=== PATIENT | male | born 1980 | race Caucasian/White ===

== ENCOUNTER 2018-07-08 08:53 | Emergency (ER) | payer OTHER ==
[2018-07-08 09:00] VITALS: BP 126/81; PULSE 78; TEMP 98; BMI 29.0
[2018-07-08] MEDS ORDERED: NAPROXEN 500 MG TABLET (FP) ONE (10:24)
--- NOTE | 2018-07-08 10:32 | PDOC ---
History of Present Illness - General Chief Complaint: Back Pain Stated Complaint: BACK PAIN / LOWER LF SIDE Time Seen by Provider: 07/08/18 10:25 History Source: Patient Exam Limitations: No Limitations - History of Present Illness Initial Comments: 07/08/18 10:27 States was at work 2 days ago, and lifted heavy pallet of lower and felt an acute onset of pain in his lower back. Denies numbness or tingling to feet, no problems with bowel or bladder. Has used some Tylenol with minimal resolved. States is difficult to twist and turn and unable to perform his job duties with same. Occurred: reports: other (3 days ago Friday morning) Severity: reports: moderate Pain Location: reports: back (low to mid back/waistline) Associated Symptoms (Fall): muscle spasms, trouble walking Past History - Travel Traveled outside of the country in the last 30 days: No Close contact w/someone who was outside of country & ill: No - Past Medical History Allergies/Adverse Reactions: Allergies Allergy/AdvReac Type Severity Reaction Status Date / Time No Known Allergies Allergy Verified 07/08/18 09:00 Home Medications: Ambulatory Orders Cyclobenzaprine HCl 10 mg PO Q8H PRN #14 tablet 07/08/18 Naproxen [Naprosyn -] 500 mg PO BID #30 tablet 07/08/18 COPD: No - Suicide/Smoking/Psychosocial Hx Smoking History: Never smoked Information on smoking cessation initiated: No Hx Alcohol Use: No Drug/Substance Use Hx: No Review of Systems - Review of Systems Able to Perform ROS?: Yes Is the patient limited Chinese proficient: Yes Constitutional: Yes: Symptoms Reported, See HPI. No: Fever, Malaise HEENTM: Yes: See HPI. No: Symptoms Reported Respiratory: Yes: See HPI Musculoskeletal: Yes: Symptoms Reported, See HPI, Back Pain, Muscle Pain, Muscle Weakness Neurological: Yes: See HPI. No: Symptoms reported All Other Systems: Reviewed and Negative *Physical Exam - Vital Signs Last Vital Signs Temp Pulse Resp BP Pulse Ox 98 F 78 17 126/81 97 07/08/18 08:59 07/08/18 08:59 07/08/18 08:59 07/08/18 08:59 07/08/18 08:59 - Physical Exam General Appearance: Yes: Appropriately Dressed, Apparent Distress, Moderate Distress HEENT: positive: [place], Normal ENT Inspection, TMs Normal, Pharynx Normal Neck: positive: Supple. negative: Tender Respiratory/Chest: positive: Lungs Clear Musculoskeletal: positive: Normal Inspection, Muscle Spasm (palpable spasm noted to paravertebral spinous muscles bilaterally, has no true spine tenderness crepitus or step-offs. Cervical spine intact) Extremity: positive: Normal Capillary Refill, Normal Inspection. negative: Normal Range of Motion Integumentary: positive: Normal Color, Dry. negative: Rash Neurologic: positive: utilization manager II-XII NML intact, Fully Oriented, Alert, Normal Mood/ Affect, Normal Response *DC/Admit/Observation/Transfer Diagnosis at time of Disposition: Low back strain Qualifiers: Encounter type: initial encounter Qualified Code(s): S39.012A - Strain of muscle, fascia and tendon of lower back, initial encounter - Discharge Dispostion Disposition: HOME Condition at time of disposition: Stable Decision to Admit order: No - Prescriptions Prescriptions: Cyclobenzaprine HCl 10 mg PO Q8H PRN #14 tablet PRN Reason: spasm Naproxen [Naprosyn -] 500 mg PO BID #30 tablet - Referrals Referrals: Xavier Anderson MD [Primary Care Provider] - - Patient Instructions Printed Discharge Instructions: DI for Low Back Pain Additional Instructions: Rest, no heavy lifting or exercise until pain is resolved Hot soaks to neck and low back as often as possible/hot showers or Jacuzzis No massage or therapy until spasm is gone Continue Naprosyn 500 mg tablet, 1 tablet every 8 hours for the next 3 days then as needed for pain and swelling Cyclobenzaprine 1-10mg every 8 hours as needed for spasm If not significant improvement within 24 hours with medication and rest regime, followup with private physician for change in medications and /or therapy. - Post Discharge Activity Forms/Work/School Notes: Back to Work
== END 2018-07-08 10:33 | disposition home or self-care (01) ==
LOC: JERFT 08:53
DX: S39.012A Strain of muscle, fascia and tendon of lower back, initial encounter (principal); M62.830 Muscle spasm of back; X50.0XXA Overexertion from strenuous movement or load, initial encounter; Y93.89 Activity, other specified; Y92.63 Factory as the place of occurrence of the external cause; Y99.0 Civilian activity done for income or pay
CPT/HCPCS: 99281-25

== ENCOUNTER 2022-08-13 16:13 | Emergency (ER) | payer OTHER ==
[2022-08-13 16:43] VITALS: BP 120/75; PULSE 96; RESP 18; TEMP 100.2; BMI 26.2
[2022-08-13] MEDS ORDERED: DEXAMETHASONE SOD PHOSPHATE 10 MG/1 ML VIAL ONE (19:25)
[2022-08-13] MEDS ORDERED: CEFTRIAXONE 500 MG in DEXTROSE 5%-WATER - 50 ML IVPB ONE (19:28)
[2022-08-13] MEDS ORDERED: ONDANSETRON 4 MG/2 ML VIAL ONE (19:37)
[2022-08-13] MEDS ORDERED: ONDANSETRON 4 MG/2 ML VIAL IVPB ONE (19:38)
[2022-08-13] MEDS ORDERED: DEXAMETHASONE SOD PHOSPHATE 10 MG/1 ML VIAL IVPUSH ONE (19:50)
[2022-08-13] MEDS ORDERED: ACETAMINOPHEN 500 MG TABLET (FP) PO ONE (21:02)
[2022-08-13] MEDS ORDERED: ACETAMINOPHEN 500 MG TABLET (FP) ONE (21:03)
[2022-08-13 21:08] LABS: POTASSIUM 4.6 mmol/L (3.5-5.1)
[2022-08-13 21:11] LABS: CALCIUM 9.7 mg/dL (8.5-10.1)
[2022-08-13 21:12] LABS: ALBUMIN 4.1 g/dl (3.4-5.0); BASO % 0.2 % (0-2.0); BLOOD UREA NITROGEN 11.7 mg/dL (7-18); EOS % 0.1 % (0-4.5); HEMOGLOBIN 16.5 GM/dL (11.7-16.9); LYMPH % 5.2 % (8-40); MCH 32.1 pg (25.7-33.7); MEAN CELL VOLUME 91.6 fl (80-96); MEAN PLT VOLUME 11.2 fl (7.5-11.1); MONO % 6.1 % (3.8-10.2); NEUT % 88.4 % (42.8-82.8); PLATELET COUNT 172 10^3/uL (134-434); RBC 5.13 M/mm3 (4.00-5.60); RDW 13.4 % (11.9-15.9); WHITE BLOOD COUNT 14.5 K/mm3 (4.0-10.0)
[2022-08-13 21:16] LABS: TOT PROT 8.2 g/dl (6.4-8.2)
[2022-08-15] MEDS ORDERED: SODIUM CHLORIDE 0.9% 1000 ML INFUS.BAG IV ONE (19:27)
== END 2022-08-13 22:14 | disposition home or self-care (01) ==
LOC: JER 16:13 → JERFT 16:13
PROC: 3E03329 Introduction of Other Anti-infective into Peripheral Vein, Percutaneous Approach (ICD-10-PCS; principal; 2022-08-13)
PROC: 3E033GC Introduction of Other Therapeutic Substance into Peripheral Vein, Percutaneous Approach (ICD-10-PCS; 2022-08-13)
PROC: 3E033GC Introduction of Other Therapeutic Substance into Peripheral Vein, Percutaneous Approach (ICD-10-PCS; 2022-08-13)
DX: J03.90 Acute tonsillitis, unspecified (principal); E86.0 Dehydration; R07.0 Pain in throat; R50.9 Fever, unspecified; R11.0 Nausea; R13.10 Dysphagia, unspecified
CPT/HCPCS: 36415; 80053; 85025; 99284-25; J1100